=== PATIENT | female | born 1980 | race Caucasian/White ===

== ENCOUNTER 2016-11-04 19:12 | Emergency (ER) | payer OTHER ==
[2016-11-04 19:30] VITALS: BP 131/75; PULSE 94; TEMP 98.4; BMI 27.3
--- NOTE | 2016-11-04 19:48 | PDOC ---
History of Present Illness - General Chief Complaint: Injury Stated Complaint: INJURY Time Seen by Provider: 11/04/16 19:33 - History of Present Illness Initial Comments: 11/04/16 19:37 CHIEF COMPLAINT: edema/erythma to R pinky toe s/p injury HISTORY OF PRESENT ILLNESS: 36 yo F with hx of asthma presents to fast track with swelling and redness to R pinky toe s/p injury. Patient states she was "running around chasing my daughter" this morning and stubbed her pinky toe. She denies injury to any other part of her body and has no complaints of pain to her ankle or foot. No recent travel or sick contacts. PAST MEDICAL HISTORY: Denies past medical history FAMILY HISTORY: Denies SOCIAL HISTORY: Denies tobacco, alcohol, illicit drug use. SURGICAL HISTORY: Denies ALLERGIES: No known drug allergies REVIEW OF SYSTEMS General/Constitutional: Denies fever or chills. Denies weakness, weight change. HEENT: Denies change in vision. Denies ear pain or discharge. Denies sore throat. Cardiovascular: Denies chest pain or shortness of breath. Respiratory: Denies cough, wheezing, or hemoptysis. Gastrointestinal: Denies nausea, vomiting, diarrhea or constipation. Denies rectal bleeding. Genitourinary: Denies dysuria, frequency, or change in urination. Musculoskeletal: Pain to R 5th toe. Skin and breasts: Denies rash or easy bruising. PHYSICAL EXAM General Appearance: Well-appearing, appropriately dressed. No apparent distress. Respiratory/Chest: Lungs CTAB. Cardiovascular: RRR. S1, S2. Vascular Pulses: Dorsalis-Pedis (R): 2+, Dorsalis-Pedis (L): 2+ Musculoskeletal/Extremities: Developing hematoma to R 5th toe. Normal inspection. FROM of all extremities, normal capillary refill. Pelvis Stable. No CVA tenderness. No tenderness to extremities, pedal edema, swelling, erythema or deformity. Integumentary: Appropriate color, dry, warm. No cyanosis, erythema, jaundice or rash Neurologic: vending machine attendant II-XII intact. Fully oriented, alert. Appropriate mood/affect. Motor strength 5/5. No appreciable EOM palsy, facial droop or sensory deficit. 11/04/16 19:48 Past History - Past Medical History Allergies/Adverse Reactions: Allergies Allergy/AdvReac Type Severity Reaction Status Date / Time No Known Allergies Allergy Verified 11/04/16 19:24 Home Medications: Ambulatory Orders Albuterol Sulfate Inhaler - [Ventolin Hfa Inhaler -] 1 - 2 inh PO QID 11/04/16 Fluticasone Propionate [Flovent Diskus] 50 mcg IH DAILY 11/04/16 Ibuprofen 800 mg PO TID #21 tablet 11/04/16 Asthma: Yes - Immunization History Immunization Up to Date: Yes - Psycho/Social/Smoking Cessation Hx Suicidal Ideation: No Smoking History: Current every day smoker Number of Cigarettes Smoked Daily: 10 Information on smoking cessation initiated: No Hx Alcohol Use: No Drug/Substance Use Hx: No *Physical Exam - Vital Signs Last Vital Signs Temp Pulse Resp BP Pulse Ox 98.4 F 94 H 18 131/75 96 11/04/16 19:25 11/04/16 19:25 11/04/16 19:25 11/04/16 19:25 11/04/16 19:25 Medical Decision Making - Medical Decision Making 11/04/16 19:49 36 yo F with hx of asthma presents to fast track with pain to R 5th toe s/p injury. -Hard sole boot -800 mg ibuprofen Advised patient to take medication as prescribed and follow RICE therapy. Advised patient to f/u with ortho if symptoms persist past 3-5 days. Patient verbalized understanding and agrees to plan. *DC/Admit/Observation/Transfer Diagnosis at time of Disposition: Injury of toe on right foot Qualifiers: Encounter type: initial encounter Qualified Code(s): S99.921A - Unspecified injury of right foot, initial encounter - Discharge Dispostion Disposition: HOME Condition at time of disposition: Stable Admit: No - Prescriptions Prescriptions: Ibuprofen 800 mg PO TID #21 tablet - Referrals Referrals: Davie Dumont MD [Staff Physician] - - Patient Instructions Printed Discharge Instructions: How To Perform RICE (Rest, Ice, Compress, Elevate), DI for Toe Fracture, DI for Toe Sprain Additional Instructions: As discussed, please take medication as prescribed and follow RICE (rest, ice, compress, elevate) therapy. Follow up with orthopedics if symptoms persist past 3-5 days. If you experience any numbness, loss of sensation, or tingling to your foot, please return to the ER.
[2016-11-04] MEDS ORDERED: IBUPROFEN 400 MG TABLET (FP) PO ONE (19:50)
== END 2016-11-04 20:45 | disposition home or self-care (01) ==
LOC: JERFT 19:12
DX: S90.121A Contusion of right lesser toe(s) without damage to nail, initial encounter (principal); W22.8XXA Striking against or struck by other objects, initial encounter; Y93.02 Activity, running; Y92.038 Other place in apartment as the place of occurrence of the external cause
CPT/HCPCS: 99281-25